=== PATIENT | female | born 1965 | race African-American/Black ===

== ENCOUNTER → 2023-11-24 | Outpatient (CLI) | payer SELFPAY ==
[~2023-11-24] VITALS: Ht 170.2 cm; Wt 127.0 kg
== END | disposition home or self-care (01) ==
LOC: Rad HDHVI 09:59
PROVIDERS: ATTEND Internal Medicine Cardiovascular Disease
DX: Z01.810 Encounter for preprocedural cardiovascular examination (principal); I10 Essential (primary) hypertension; Z82.49 Family history of ischemic heart disease and other diseases of the circulatory system
CPT/HCPCS: 93017